=== PATIENT | male | born 1960 | race Caucasian/White ===

== ENCOUNTER 2021-02-14 12:04 | Emergency (ER) | payer MEDICARE ==
[~2021-02-14] VITALS: Ht 172.7 cm; Wt 88.0 kg
[2021-02-14 12:45] LABS: ABSOLUTE NEUTROPHILS 6.6 thou/uL (1.4-8.2); BASOPHILS 1.2 % (0.0-2.0); EOSINOPHILS 2.4 % (0.0-3.0); HEMATOCRIT 38.3 % (42.0-52.0); LYMPHOCYTES 14.2 % (24.0-44.0); MCH 31.2 pg (26.0-34.0); MCHC 33.9 g/dL (28.0-37.0); MONOCYTES 5.5 % (1.0-8.0); PLATELET COUNT 327 thou/uL (150-400); POLYS 76.7 % (36.0-66.0); RBC 4.16 mil/uL (4.50-6.00); RDW 13.4 % (10.5-14.5); WBC 8.7 thou/uL (4.0-11.0)
[2021-02-14 12:51] LABS: ANION GAP 7 mmol/L (7-16); BUN 20 mg/dL (7-18); CALCIUM 8.7 mg/dL (8.5-10.1); CHLORIDE 102 mmol/L (98-107); CO2 26 mmol/L (21-32); CREATININE 1.4 mg/dL (0.7-1.3); GLUCOSE 95 mg/dL (74-106); POTASSIUM 4.5 mmol/L (3.5-5.1); SODIUM 135 mmol/L (136-145)
[2021-02-14 13:01] LABS: ALBUMIN 3.5 g/dL (3.4-5.0); SGOT 21 U/L (15-37); SGPT 31 U/L (16-63); TOTAL BILIRUBIN 0.4 mg/dL (0.2-1.0); TROPONIN-I <0.06 ng/mL (<0.06)
[2021-02-14] MEDS ORDERED: CLEOCIN HCL300 MG PO (14:59)
[2021-02-14 15:05] VITALS: BP 121/74
--- NOTE | 2021-02-15 12:22 | EKG ---
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
== END 2021-02-14 15:05 | disposition left against medical advice (07) ==
LOC: ER 12:04
PROVIDERS: Nurse Practitioner Family
DX: S09.90XA Unspecified injury of head, initial encounter (principal); L03.221 Cellulitis of neck; R55 Syncope and collapse; Z86.73 Personal history of transient ischemic attack (TIA), and cerebral infarction without residual deficits; Y93.89 Activity, other specified; W19.XXXA Unspecified fall, initial encounter; Y92.89 Other specified places as the place of occurrence of the external cause; Y99.8 Other external cause status